=== PATIENT | male | born 1990 | race Caucasian/White ===

== ENCOUNTER 2022-06-07 12:36 | Outpatient (CLI) | payer OTHER, SELFPAY ==
[2022-06-07 19:12] LABS: Alanine Aminotransferase 37 U/L (6-50); Albumin Level 4.8 g/dL (3.5-5.1); Alkaline Phosphatase 113 U/L (38-126); Anion Gap 9 mmol/L (8-16); Aspartate Amino Transferase 40 U/L (17-59); Bilirubin,Total 0.6 mg/dL (0.2-1.3); Blood Urea Nitrogen 12 mg/dL (9-20); Calcium 9.1 mg/dL (8.4-10.2); Carbon Dioxide 26 mmol/L (22-30); Chloride 107 mmol/L (98-107); Cholesterol 175 mg/dL (0-200); Estimated Glomerular Filt Rate > 60; Glucose 92 mg/dL (65-110); HDL Direct 36 mg/dL; Potassium 4.1 mmol/L (3.4-5.0); Sodium 142 mmol/L (137-145); Triglycerides 183 mg/dL (<150)
[2022-06-07 19:35] LABS: LDL Cholesterol Direct 103 mg/dL; Prostate Specific Antigen 1.1 ng/mL (< OR = 4.0)
[2022-06-07 20:07] LABS: Basophils Absolute Auto 0.1 K/mm3 (0.0-0.1); Basophils Percent Auto 0.6 % (0.2-1.2); Eosinophils Absolute Auto 0.2 K/mm3 (0-0.3); Eosinophils Percent Auto 2.7 % (0-4.4); Hemoglobin 16.2 g/dL (14.0-18.0); Immature Granulocyte Absolute 0.07 K/mm3 (0.00-0.031); Immature Granulocyte Percent A 0.9 % (0-0.5); Lymphocytes Absolute Auto 2.32 K/mm3 (0.9-3.2); Lymphocytes Percent Auto 28.4 % (18.3-44.2); Mean Corpuscular HGB Conc 33.1 g/dl (32-36); Mean Corpuscular Hemoglobin 27.8 pg (26-34); Mean Platelet Volume 9.9 fl (7.4-10.4); Monocytes Absolute Auto 0.5 K/mm3 (0.1-0.6); Monocytes Percent Auto 6.4 % (2.6-8.5); Platelet Count Result 339 k/mm3 (150-375); Red Blood Count 5.83 M/mm3 (4.6-6.20); Red Cell Distribution Width 14.2 % (11.5-14.5); White Blood Count 8.2 K/mm3 (4.5-10.0)
[2022-06-07 23:15] LABS: Vitamin D 25 Hydroxy < 12.8 ng/mL
[2022-06-11 15:53] LABS: FSH 2.9 mIU/mL (1.6-8.0); LH 4.9 mIU/mL (1.5-9.3)
[2022-06-15 16:31] LABS: Testosterone Free 53.5 pg/mL (35.0-155.0); Testosterone Total 341 ng/dL (250-1100)
== END 2022-06-07 12:37 | disposition home or self-care (01) ==
LOC: ANHGOSHLAB 12:39
PROVIDERS: PCP Internal Medicine; Visit Provider Clinical Nurse Specialist
DX: E29.1 Testicular hypofunction (principal); E55.9 Vitamin D deficiency, unspecified; R53.83 Other fatigue; Z13.220 Encounter for screening for lipoid disorders; Z13.228 Encounter for screening for other metabolic disorders
CPT/HCPCS: 36415; 80053; 80061; 82306; 83001; 83002; 84153; 84402; 84403; 84443; 85025

== ENCOUNTER 2022-07-05 08:27 | Outpatient (CLI) | payer OTHER, SELFPAY ==
--- NOTE | 2022-07-17 14:52 | WPDHOMESLEEP ---
Sleep Study - Home Unattended Date of Study: 07/05/22 Ordering Provider: LAITH Collins-Fadi Interpreting Provider: Mila Lance, DO Home Sleep Study Type: Watch PAT Height: 1.73 m Weight: 111.13 kg Body Mass Index: 37.2 Neck Circumference (inches): 18 [place]: 17 Reason for Sleep Study Witnessed apneas Sleep History The patient is a 31-year-old male with anxiety, testicular hypofunction and use of chewing tobacco that had a sleep study ordered by his primary care for evaluation of sleep apnea. The patient constantly awakens from sleep short of breath. He frequently awakens at night with heartburn, belching or cough. He constantly snores loudly enough that others complain. He rarely has trouble sleeping when he has a cold. He frequently wakes up gasping for air throughout the night. He frequently has breathing problems at night observed by himself or others. He rarely sweats excessively at night. He occasionally has heart palpitations or irregular heartbeats during the night. He occasionally falls asleep during the day but never while driving. He denies sleep paralysis and cataplexy. He denies having trouble at school or work due to sleepiness. He occasionally experiences vivid dreamlike scenes upon awakening or falling asleep. He denies feeling afraid of going to sleep. He denies having nightmares. He occasionally remembers his dreams. He rarely has thoughts racing through his mind. He rarely feels sad or depressed. He rarely has anxiety. He rarely has muscular tension. He frequently notices parts of his body jerk. He frequently kicks during the night. He frequently has crawling and aching feelings in his legs and frequently has leg pain during the night. He rarely grinds his teeth during sleep but frequently awakens with morning jaw pain. He is rarely bothered by pain during the day and rarely awakened by pain during the night. He frequently wakes up feeling stiff in the morning. He occasionally wakes up with sore or achy muscles. He occasionally wakes up with pain in the neck, spine and other joints. He goes to bed at 9:00 p.m. on weekdays and at 11:00 p.m. on the weekends. He is able to fall asleep quickly. He wakes up 3-4 times throughout the night to urinate and is able to fall back asleep within 5-10 minutes. He wakes up between 5-6 a.m. on weekdays and between 9-10 a.m. on the weekends. He typically gets 8 hours of sleep per night. He will stay in bed for 5-10 minutes after waking up in the morning. He currently lives with his and son. He does not consume any caffeinated beverages within 2 hours of bedtime. He does not engage in physical exercise before bedtime. He will watch television before falling asleep. He will take naps in the afternoon or the evening but they are not refreshing. He drinks 16 oz of Red Bull daily. He currently uses chewing tobacco. He denies alcohol and recreational drug use. [facility] Social History Social History Smoking status: Never smoker Lack of Transportation: No Lack of Food: Never True Current Housing: I Have Housing Concerned About Future Housing: No Difficulty Paying Gas/Electric Bills: No Difficulty Paying for Meds: No Currently Unemployed: No Education: Master's Degree or Higher Difficulty w/ Childcare or Family Care: No Living arrangements: with family Additional living arrangements comments: with Occupation/Education: occupation Additional occupation/education comments: [employer] Medications Home Medications Medication Instructions Recorded Confirmed Type cholecalciferol (vitamin D3) 1,250 1,250 mcg PO WEEKLY #12 tabs 06/08/22 06/09/22 Rx mcg (50,000 unit) tablet Sleep Procedure The sleep study was completed using [employer] Guest a technically adequate device with seven channels: peripheral arterial tone, actigraphy, body positio
[2022-07-17 15:04] VITALS: BMI 37.2
--- NOTE | 2022-08-31 08:48 | SLEEP ---
new calls in [id number]
== END 2022-07-06 12:20 | disposition home or self-care (01) ==
LOC: ANHCSM 08:27
PROVIDERS: PCP Internal Medicine; Visit Provider Clinical Nurse Specialist
DX: G47.10 Hypersomnia, unspecified (principal); G47.33 Obstructive sleep apnea (adult) (pediatric)
CPT/HCPCS: 95800

== ENCOUNTER 2022-08-09 11:01 | Outpatient (CLI) | payer OTHER, SELFPAY ==
--- NOTE | 2022-09-05 10:44 | WPDSLEEPSTUD ---
Sleep Study Date of Study: 08/09/22 Ordering Provider: Mila Lance DO Interpreting Physician: Marichuy Tee MD Sleep Study Type: CPAP Titration Height: 1.73 m Weight: 115.666 kg Body Mass Index: 38.7 Neck Circumference (inches): 18.5 [place]: 17 Reason for Sleep Study * 07/05/2022, home sleep test using WatchPat showing severe obstructive sleep apnea, apnea-hypopnea index 109.6 with desaturation to 51%. He presents for an in-lab CPAP titration. Sleep History Marquise Salazar is a 31-year-old man with anxiety, testicular hypofunction who has excessive daytime somnolence. His home sleep test showed severe obstructive sleep apnea, and he presents for a titration. The patient constantly awakens from sleep short of breath.? He frequently awakens at night with heartburn, belching or cough.? He constantly snores loudly enough that others complain.? He rarely has trouble sleeping when he has a cold.? He frequently wakes up gasping for air throughout the night.? He frequently has breathing problems at night observed by himself or others.? He rarely sweats excessively at night.? He occasionally has heart palpitations or irregular heartbeats during the night.? He occasionally falls asleep during the day but never while driving.? He denies sleep paralysis and cataplexy.? He denies having trouble at school or work due to sleepiness.? He occasionally experiences vivid dreamlike scenes upon awakening or falling asleep.? He denies feeling afraid of going to sleep.? He denies having nightmares.? He occasionally remembers his dreams.? He rarely has thoughts racing through his mind.? He rarely feels sad or depressed.? He rarely has anxiety.? He rarely has muscular tension.??He frequently notices parts of his body jerk.? He frequently kicks during the night.? He frequently has crawling and aching feelings in his legs and frequently has leg pain during the night.??He rarely grinds his teeth during sleep but frequently awakens with morning jaw pain.? He is rarely bothered by pain during the day and rarely awakened by pain during the night.? He frequently wakes up feeling stiff in the morning.? He occasionally wakes up with sore or achy muscles.? He occasionally wakes up with pain in the neck, spine and other joints.? He goes to bed at 9:00 p.m. on weekdays and at 11:00 p.m. on the weekends.? He is able to fall asleep quickly.? He wakes up 3-4 times throughout the night to urinate and is able to fall back asleep within 5-10 minutes.? He wakes up between 5-6 a.m. on weekdays and between 9-10 a.m. on the weekends.? He typically gets 8 hours of sleep per night.? He will stay in bed for 5-10 minutes after waking up in the morning.? He currently lives with his and son.? He does not consume any caffeinated beverages within 2 hours of bedtime.? He does not engage in physical exercise before bedtime.? He will watch television before falling asleep.? He will take naps in the afternoon or the evening but they are not refreshing.? Habits: He drinks 16 oz of Red Bull daily.? He currently uses chewing tobacco.? He denies alcohol and recreational drug use. [facility] Social History Social History Smoking status: Never smoker Lack of Transportation: No Lack of Food: Never True Current Housing: I Have Housing Concerned About Future Housing: No Difficulty Paying Gas/Electric Bills: No Difficulty Paying for Meds: No Currently Unemployed: No Education: Master's Degree or Higher Difficulty w/ Childcare or Family Care: No Living arrangements: with family Additional living arrangements comments: with Occupation/Education: occupation Additional occupation/education comments: [employer] Medications Home Medications Medication Instructions Recorded Confirmed Type cholecalciferol (vitamin D3) 1,250 1,250 mcg PO WEEKLY #12 tabs 06/08/22 06/09/22 Rx mcg (50,000 unit) tablet
[2022-09-05 10:56] VITALS: BMI 38.7
== END 2022-08-10 05:54 | disposition home or self-care (01) ==
PROVIDERS: PCP Internal Medicine; Visit Provider Family Medicine
DX: G47.33 Obstructive sleep apnea (adult) (pediatric) (principal); G25.81 Restless legs syndrome
CPT/HCPCS: 95811

== ENCOUNTER 2023-04-08 13:51 | Outpatient (CLI) | payer OTHER, SELFPAY | END 2023-04-08 13:52 | disposition home or self-care (01) | LOC: ANHGOSHLAB 13:52 | PROVIDERS: PCP Internal Medicine; Visit Provider Family Medicine | DX: D64.9 Anemia, unspecified (principal) | CPT/HCPCS: 36415; 82728 ==

== ENCOUNTER 2023-04-17 10:19 | Outpatient (CLI) | payer OTHER, SELFPAY ==
[2023-04-17 18:58] LABS: Basophils Absolute Auto 0.1 K/mm3 (0.0-0.1); Basophils Percent Auto 0.7 % (0.2-1.2); Eosinophils Absolute Auto 0.2 K/mm3 (0-0.3); Hematocrit 42.9 % (42.0-52.0); Hemoglobin 13.9 g/dL (14.0-18.0); Immature Granulocyte Absolute 0.08 K/mm3 (0.00-0.031); Immature Granulocyte Percent A 1.1 % (0-0.5); Lymphocytes Absolute Auto 1.94 K/mm3 (0.9-3.2); Lymphocytes Percent Auto 26.1 % (18.3-44.2); Mean Corpuscular HGB Conc 32.4 g/dl (32-36); Mean Corpuscular Hemoglobin 27.1 pg (26-34); Mean Corpuscular Volume 83.6 fl (80-100); Monocytes Absolute Auto 0.4 K/mm3 (0.1-0.6); Monocytes Percent Auto 5.8 % (2.6-8.5); Neutrophils Absolute Auto 4.8 K/mm3 (1.3-6.7); Neutrophils Percent Auto 64.3 % (45.5-73.1); Platelet Count Result 282 k/mm3 (150-375); Red Blood Count 5.13 M/mm3 (4.6-6.20); Red Cell Distribution Width 13.9 % (11.5-14.5); White Blood Count 7.4 K/mm3 (4.5-10.0)
[2023-04-17 19:41] LABS: Alanine Aminotransferase 37 U/L (6-50); Albumin Level 4.4 g/dL (3.5-5.1); Alkaline Phosphatase 94 U/L (38-126); Anion Gap 5 mmol/L (8-16); Aspartate Amino Transferase 41 U/L (17-59); Bilirubin,Total 0.6 mg/dL (0.2-1.3); Blood Urea Nitrogen 11 mg/dL (9-20); Calcium 9.1 mg/dL (8.4-10.2); Carbon Dioxide 28 mmol/L (22-30); Chloride 106 mmol/L (98-107); Cholesterol 152 mg/dL (0-200); Estimated Glomerular Filt Rate > 60; Glucose 101 mg/dL (65-110); HDL Direct 27 mg/dL; Potassium 4.2 mmol/L (3.4-5.0); Sodium 139 mmol/L (137-145); Triglycerides 128 mg/dL (<150)
[2023-04-17 19:52] LABS: LDL Cholesterol Direct 97 mg/dL
[2023-04-17 19:55] LABS: Vitamin D 25 Hydroxy 14.4 ng/mL
[2023-04-23 08:55] LABS: Testosterone Free 59.5 pg/mL (35.0-155.0); Testosterone Total 293 ng/dL (250-1100)
== END 2023-04-17 10:20 | disposition home or self-care (01) ==
LOC: ANHGOSHLAB 10:21
PROVIDERS: PCP Internal Medicine; Visit Provider Clinical Nurse Specialist
DX: Z13.228 Encounter for screening for other metabolic disorders (principal); Z13.220 Encounter for screening for lipoid disorders; E29.1 Testicular hypofunction; E55.9 Vitamin D deficiency, unspecified; R53.83 Other fatigue
CPT/HCPCS: 36415; 80053; 80061; 82306; 84402; 84403; 84443; 85025